=== PATIENT | male | born 1955 | race Caucasian/White ===

== ENCOUNTER 2024-11-27 08:04 | Outpatient (CLI) | payer MEDICARE, SELFPAY ==
--- NOTE | ~2024-11-27 | PE_ITS ---
EXAMINATION: PET_PETPSMAST_PT DATE: 11/27/2024 11:58 INDICATION: Prostate cancer TECHNIQUE: 5.126 mCi of Illucix Ga-[id number]) was administered i.v. Low dose computed cuco graphy (CT) images were acquired from the base of the brain to the base of the brain to the proximal thighs for attenuation correction and anatomic localization. Positron emission tomography (PET) image s were acquired in the same distribution beginning 90 minutes after injection. Images including fused PET/CT images were reconstructed in axial, coronal, and sagittal planes. Automated exposure control technique was employed. The dose-length product was 1210.15 mGy-cm. COMPARISON: None FINDINGS: Head/neck: Typical pattern of symmetric physiologic increased activity in the lacrimal, parotid and submandibula r glands as well as along the mucosa of the nasal and oral cavities, pharynx and hypopharynx. No path ologically enlarged cervical lymphadenopathy or suspicious foci of increased uptake in the visualized head or neck. Chest: A couple calcified left lower lobe nodules along with calcified left hilar and mediastinal lymph node s consistent with old granulomatous disease. No other suspicious noncalcified pulmonary nodules, pneu monia, pulmonary edema or pleural effusion. Heart size is normal. Atherosclerotic coronary artery boris cifications. Thoracic aorta is normal in caliber. No pathologically enlarged or PSMA avid thoracic ly mphadenopathy. Abdomen/pelvis/proximal thighs: Physiologic renal accumulation and excretion of activity in the kidneys, bladder and along portions o f ureters. There is a small region of increased PSA may uptake with maximal SUV of 4.7 at the left po sterior aspect of the prostate consistent with reported primary prostate cancer. Normal degree and sl ightly heterogenous pattern of increased uptake throughout the liver and spleen without radiologic co rrelate or dominant PSMA avid lesion. The gallbladder, pancreas and bilateral adrenal glands are norm al. Moderate uptake scattered throughout the bowels with typical duodenal and proximal jejunal predom inance and without radiologic correlate, also likely physiologic. Air-fluid level within a 5.0 x 2.5 cm duodenal diverticulum posterior to the head of the pancreas. There is moderate sigmoid diverticulo sis without adjacent inflammatory change to suggest diverticulitis. No other abnormal foci of increa sed uptake or pathologically enlarged lymphadenopathy in the abdomen, pelvis or proximal thighs. Musculoskeletal: Severe lumbosacral spondylosis. Otherwise mild scattered degenerative skeletal changes in the spine a nd at the hips and shoulders. Small focus of likely extravasated activity at the site of injection at the right forearm. No suspicious lytic, blastic or abnormally PSMA avid bone lesions. IMPRESSION: 1. Small region of mild increased uptake at the left posterior aspect of the prostate consistent with primary prostate cancer. No evident metastatic disease. Reviewed, dictated and finalized at location A. IMPRESSION: 1. Small region of mild increased uptake at the left posterior aspect of the pr ostate consistent with primary prostate cancer. No evident metastatic disease.
--- OUTSIDE RECORDS SUMMARY | 2024-11-27 08:10 | XMS_ITS | Encounter Summary ---
Author Organization [facility] Address [address] [place] [address] Care Team Providers Care Supervisor Continuous Weld Pipe Mill Name Role Phone Yoel Strauss MD Primary Care Provide r Encounter Details Date Type Department Care Team (Late st Contact Info) Description 07/04/2024 Prep for Procedure [facility] Pre-Admission Testing [place], [place] [id number] Jac Bailey MD [address] [facility]. [place], [place] [id number] Social History Tobacco Use Types Packs/Day Years Used Date Smoking Tobacco: Former Cigarettes Q uit: 06/23/2016 Passive Smoke Exposure: Never Smokeless Tobacco: Never Comments:smoked x50 years Alcohol Use Standard Drinks/Week Comments Yes 0 (1 standard drink = 0.6 oz pur e alcohol) occasionally AUDIT-C Answer Date Recorded Frequency of Alcohol Consumption Monthly or less 09/11/2018 Average Number of Drinks Not on file 019 Frequency of Binge Drinking Not on file 08/20 PHQ-2 Answer Date Recorded Patient Health Questionnaire-2 Score 0 04/24/2024 Sex and Gender Information Value Date Recorded Sex Assigned at Male 07/16/2021 8:47 AM APPEALS AND GENERALIST CLERK Legal Sex Male 7:36 PM CDT Gender Identity Male 07/16/2021 8:47 AM APPEALS AND GENERALIST CLERK Sexual Orientation Straight 07/16/2021 8: 47 AM APPEALS AND GENERALIST CLERK documented as of this encounter Plan of Treatment Not on file documented as of this encounter Visit Diagnoses Not on filedocumented in this encounter Additional Health Concerns Assessment Noted Time PHQ-9 Depression Total Score: 0 05/06/20 21 9:56 AM CDT documented as of this encounter Care Teams Supervisor Continuous Weld Pipe Mill Relationship Specialty Start Date End Date Yoel Strauss MD PCP - General INTERNAL MEDICINE 09/11/18 documented as of this encounter
--- OUTSIDE RECORDS SUMMARY | 2024-11-27 08:10 | XMS_ITS | Encounter Summary ---
Author Organization [facility] Address [address] [place] [address] Care Team Providers Care Videotape Editor Name Role Phone Yoel Strauss MD Primary Care Provide r Encounter Details Date Type Department Care Team (Late st Contact Info) Description 05/16/2012 Abstract [facility] Conversion Md, Generic Conversion, Social History Tobacco Use Types Packs/Day Years Used Date Smoking Tobacco: Never Assessed Sex and Gender Information Value Date Recorded Sex Assigned at Male 07/16/2021 8:47 AM AUTO PAINTER HELPER Legal Sex Male 7:36 PM CDT Gender Identity Male 07/16/2021 8:47 AM AUTO PAINTER HELPER Sexual Orientation Straight 07/16/2021 8: 47 AM AUTO PAINTER HELPER documented as of this encounter Plan of Treatment Not on file documented as of this encounter Visit Diagnoses Not on filedocumented in this encounter Care Teams Videotape Editor Relationship Specialty Start Date End Date Yoel Strauss MD PCP - General INTERNAL MEDICINE 09/11/18 documented as of this encounter
--- OUTSIDE RECORDS SUMMARY | 2024-11-27 08:10 | XMS_ITS | Clinical Summary ---
Author Organization [facility] Address [address] [place] [address] Care Team Providers Care Import Export Coordinator Name Role Phone Yoel Strauss MD Primary Care Provide r Allergies No known active allergies Medications escitalopram (LEXAPRO) 10 MG tabletIndications: MANA (generalized anxiety disorder) Take 1 tablet (10 mg total) by mouth daily. 90 tablet 3 04/24/20 24 Active lisinopril (PRINIVIL) 40 MG tabletIndications: Benign hypertension Take 1 tablet (40 mg total) by mouth daily. 90 tablet 3 04/24/20 24 Active metFORMIN (GLUCOPHAGE) 500 MG tabletIndications: Type 2 diabetes mellitus with hyperglycemia, with long-term current use of insulin ([facility] HHS/HCC) Take 2 tablets (1,000 mg total) by mouth 2 (two) times daily with meals. 360 tablet 3 04/24/20 24 Active Insulin Pen Needle (RELION PEN NEEDLE 31G/8MM) 31G X 8 MM MiscIndications:Ty pe 2 diabetes mellitus with hyperglycemia, with long-term current use of insulin ([facility]/HCC HHS/HCC) USE 1 SYRINGE SUBCUTANEOUSLY ONCE DAILY 50 each 3 05/29/20 24 Active insulin glargine (LANTUS SOLOSTAR) 100 UNIT/ML injection (PEN)Indications:T ype 2 diabetes mellitus with hyperglycemia, with long-term current use of insulin ([facility] HHS/HCC) INJECT 20 UNITS INTO THE SKIN IN THE MORNING AND 80 UNITS IN THE EVENING 80 mL 11 07/10/20 24 Active atorvastatin (LIPITOR) 80 MG tabletIndications: Mixed hyperlipidemia Take 1 tablet (80 mg total) by mouth daily. 100 tablet 1 08/28/19 25 Active Active Problems Problem Noted Date Diagnosed Date Hx of colonic polyps 05/23/2024 Chronic osteomyelitis of toe of left foot ([facility]/H CC [facility]) 08/17/2023 Elevated PSA 02/02/2023 Acute pain of right shoulder 04/30/2022 Adenomatous polyp of descending colon 07/07/2021 Diabetic polyneuropathy asso ciated with type 2 diabetes mellitus ([facility]) 05/15/2021 MANA (generalized anxiety disorder) 03/12/2020 Rupture of left biceps tendon, initial encounter 05/09/2019 Benign hypertension 04/05/2019 Type 2 diabetes mellitus wit h hyperglycemia, with long-term current use of insulin ([facility]) 07/19/2016 Overview (03/21/2019): type II diabetes mellitus [non-insulin dependent type] [NIDDM type] [adult-onset type] or unspecified type, not stated as uncontrolled, without mention of complication Mixed hyperlipidemia 05/16/2012 Overview (03/21/2019): Mixed hyperlipidemia Resolved Problems Problem Noted Date Diagnosed Date Resolved Date Encounter for screening for malignant neoplasm of colon 06/02/2021 06/09/2021 Encounters Date Type Department Care Team Description 11/10/[address] [address] [place] [address] Yoel Strauss MD Other 11/06/2024 Scan HEALTH INFO [facility]CS Scanned, [facility] 10/30/2024 Scan MG HEALTH INFO [facility] Scanned, [facility] 09/25/2024 9:22 AM CDT Anesthesia Event [facility] [address] [place] [address] Dharmesh Syed CRNA Ruocco, Eric, MD 09/25/2024 9:00 AM CDT - 09/25/2024 9:26 AM CDT Surgery [facility] [address] [place] [address] Erlinda Moore MD COLONOSCOPY WITH BIOPSIES 09/25/2024 7:35 AM CDT - 09/25/2024 11:00 AM CDT Hospital Encounter [facility] [address] [place] [address] Erlinda Moore MD Discharge Disposition: Home or Self Care (Routine Discharge) 09/25/2024 Travel 09/12/2024 Travel from Last 3 Months Immunizations Immunization Administration Dates Next Due Fluzone High Dose - >Age 65 (Prefilled Syringe) 04/28/2023 Influenza Adult (Generic) 06/05/2020 PFIZER COVID-19 (ORIGINAL FO RMULATION, PURPLE CAP) mRNA, LNP-S, PF, 30 MCG/0.3 ML DOSE 04/18/2021,10/14/2020,09/23/2020 PFIZER COVID-19 BIVALENT (12 +) mRNA, LNP-S, PF, 30 MCG/0.3 ML DOSE 04/22/2022 Pneumococcal (Prevnar 13) 05/06/2021 Pneumococcal (Prevnar 20) 09/15/2023 Shingrix 09/15/2023 Tdap (Generic) 03/31/2024 Family History Medical History Relation Comments Cancer Father lung Diabetes Mother Hypertension Mother Relation Status Comments Father Mother Social History Tobacco Use Types Packs/Day Years Used Date Smoking Tobacco: Former Cigarettes Q uit: 06/23/2016 Passive Smoke Exposure: Never Smokeless Tobacco: Never Tobacco Cessation:Counseling Given: No Comments:smoked x50 years Alcohol Use Standard Drinks/Week [...] Sex Assigned at Male 07/16/2021 8:47 AM OSTRICH FARM WORKER Legal Sex Male 7:36 PM CDT Gender Identity Male 07/16/2021 8:47 AM OSTRICH FARM WORKER Sexual Orientation Straight 07/16/2021 8: 47 AM OSTRICH FARM WORKER Last Filed Vital Signs Vital Sign Reading Time Taken Comments Blood Pressure 121/67 09/25/2024 10:25 AM CDT Pulse 72 09/25/2024 10:25 AM CDT Temperature 36.7 C (98 F) 09/25/2024 9:56 AM CDT Respiratory Rate 18 09/25/2024 10:25 AM CDT Oxygen Saturation 94% 09/25/2024 10:25 AM CDT Inhaled Oxygen Concentration - - Weight 102.1 kg (225 lb) 09/25/2024 7:59 AM CDT Height 188 cm (6' 2 ) 09/25/2024 7:59 AM CDT Body Mass Index 28.89 09/25/2024 7:59 AM CDT Plan of Treatment Health Maintenance Due Date Last Done Comments Kidney Health Evaluation 1955 Diabetes: Retinopathy Eye Exam 1974 Hepatitis C 1974 RSV Immunization or 60+ Years (1 - Risk 60-74 years 1-dose series) 2016 AAA SCREENING 2021 Annual Medicare Wellness Visit 2021 Zoster Vaccines (2 of 2) 11/10/2023 09/15/2023 PHQ-2 (Physician [place]) 07/19/2024 04/24/2024 Hemoglobin A1C 08/01/2024 05/01/2024, 07/0 09/2022, 05/01/2021, Additional history exists COVID-19 Vaccine ( season) 2024 03/31/2024, 04/22/2022, 04/18/2021, Additional history exists Lipid Panel 05/01/2025 05/01/2024, 07/0 09/2022, 05/01/2021, Additional history exists DTaP, Tdap and Td Vaccines (2 - Td or Tdap) 03/31/2034 03/31/2024 Colorectal Cancer Screening Colonoscopy (10 Years) 09/25/2034 09/25/2024, 09/25/2024, 06/30/2021, Additional history exists Pneumococcal Vaccine: 50+ Years Completed 09/15/2023, 05/06/2021 Meningococcal B Vaccine Aged Out No l onger eligible based on patient's age to complete this topic Meningococcal Vaccine Aged Out No andrew lillian eligible based on patient's age to complete this topic RSV Immunizations Under 20 Months Aged Out No longer eligible based on patient's age to complete this topic Medical Devices Implanted Type Area Stem Dryer Maintainer Device Identifier Shelf Expiration Date Model / Serial / Lot Joe Joe Right: Hand Procedures Procedure Name Priority Date/Time Associated Diagnosis Comments COLONOSCOPY WITH BIOPSY 09/25/2024 9:22 AM CDT Hx of colonic polyps Case Notes Insulin dependent diabeticPatient was moved due to having covid. POCT GLUCOSE - ORDOÑEZ DOCKED DEVICE Routine 09/25/2024 7:56 AM CDT COLONOSCOPY Routine 09/25/2024 7:42 AM CDT PATHOLOGY Routine 09/25/2024 12:00 AM CDT LIPID PANEL Routine 05/01/2024 8:32 AM CDT Type 2 diabetes mellitus with hyperglycemia, with long-term current use of insulin ([facility] HHS/HCC) HEMOGLOBIN, GLYCOSYLATED Routine 05/01/2024 8:32 AM CDT Type 2 diabetes mellitus with hyperglycemia, with long-term current use of insulin ([facility] HHS/HCC) from Last 3 Months or Most Recently Relevant to Health Maintenance Results * (ABNORMAL) POCT glucose (09/25/2024 7:56 AM CDT) GLUCOSE POC 115(H) 70 - 99 MG/DL 09/25/2024 7:58 AM CDT [facility] 09/25/2024 7:56 AM CDT Erlinda Moore MD POCT ORDERABLES - DEVICE Fin al Result [facility] [address] [place] [address], [place] [phone] * Pathology (09/25/2024 12:00 AM CDT) PATHOLOGY [facility] Department of Laboratory Medicine [address] [place] [address] , extension [phone] Pathology Report Surgical Pathology Report Name: ROLA ANTHONY Hari Specimen #: [id number] Age: 10 1955 (Age: 69) Location: [facility] Sex: M Procedure Date: 09/25/2024 Hospital #: [id number] Date Received: 09/26/2024 Date Reported: 09/27/2024 Provider: ERLINDA MOORE MD Source: A: Splenic flexure, biopsies B: Colon, proximal descending, biopsies C: Colon, right, biopsies Clinical History: Z86.010. FINAL DIAGNOSIS: A. Colon polyp, splenic flexure, polypectomy: -Fragments of tubular adenoma B. Colon polyp, proximal descending, polypectomy: -Fragments of tubular adenoma C. Colon polyp, right, polypectomy: -Fragments of tubular adenoma Gross Description: A. Received in formalin, labeled with a patient label and as biopsy polyp splenic flexure are multiple pieces of delicate white tissue 0.8 x 0.8 x 0.2 cm in aggregate. The specimen is entirely submitted in cassette A1. B. Received in formalin, labeled with a patient label and as biopsy polyp proximal descending colon are 2 pieces of armendariz tissue 0.1 and 0.2 cm. The specimen is entirely submitted in cassette B1. C. Received in formalin, labeled with a patient label and as biopsy polyp right colon are 2 pieces of armendariz tissue each 0.2 cm. The specimen is entirely submitted in cassette C1. Gross examination (when applicable) was performed at [facility], [address] [place] [address]. This case was interpreted and signed out at [facility], [address] [place] [address]. Electronically Signed Out GAETANO BROWNING MD [facility] TISSUE COLON STRUCTURE / Unknown 09/25/2024 9:44 AM CDT Tissue specimen (specimen) COLON STRUCTURE / Unknown 09/25/2024 9:36 AM CDT Tissue specimen (specimen) COLON STRUCTURE / Unknown 09/25/2024 9:35 AM CDT us Erlinda Moore MD PATHOLOGY/CYTOLOGY ORDERABLE S Final Result [facility] [address] [place] [address], [place] [phone] * (ABNORMAL) HEMOGLOBIN, GLYCOSYLATED (05/01/2024 8:32 AM CDT) HGB A1C 10.0(H) <5.7 % 05/01/2024 1:53 PM CDT [facility] Comment: ADA GUIDELINES 2010 5.7 TO 6.4% INCREASED RISK OF DIABETES > OR = 6.5% CONSISTENT WITH DIABETES TESTING PERFORMED AT [facility] [id number] [place] [address] ESTIMATED AVG GLUCOSE 240 mg/dL 05/01/2024 1:53 PM CDT [facility] 05/01/2024 8:32 AM CDT Yoel Strauss MD LABORATORY Final Result [facility] [address] [place] [address], [place] [phone] * (ABNORMAL) LIPID PANEL (05/01/2024 8:32 AM CDT) CHOLESTEROL 119 <200 MG/DL 05/01/2024 10:54 AM CDT [facility] TRIGLYCERIDES 74 <150 MG/DL 05/01/2024 10:54 AM CDT [facility] HDL 35(L) >40.0 MG/DL 05/01/2024 10:54 AM CDT [facility] LDL (CALCULATED) 69 <100 MG/DL 05/01/20 10:54 AM CDT [facility] NON HDL CHOLESTEROL 84 <130 MG/DL 05/01 10:54 AM CDT [facility] Comment: NOTE: WHEN THE TRIGLYCERIDES ARE >200 mg/dL, NON HDL C IS A SECONDARY TARGET OF THERAPY, WITH A GOAL 30 mg/dL HIGHER THAN THE IDENTIFIED LDL C GOAL. CHOL/HDL RATIO 3.4 0.0 - 4.5 05/01/2024 10:54 AM CDT [facility] VLDL CALCULATION 15 5 - 55 MG/DL 05/01/2024 10:54 AM CDT [facility] LIPID INTERPRETATION 05/01/2024 10:54 AM CDT [facility] Comment: NIH CONCENSUS REPORT RECOMMENDATIONS: ADULT CHILD LOW RISK: CHOLESTEROL <200 <170 TRIGLYCERIDE <150 --- HDL >=60 --- LDL <100 <110 BORDERLINE: CHOLESTEROL 200-239 170-199 TRIGLYCERIDE 150-199 --- HDL 40-59 --- LDL 100-159 110-129 HIGH RISK: CHOLESTEROL >=240 >=200 TRIGLYCERIDE >=200 --- HDL <40 --- LDL >=160 >=130 05/01/2024 8:32 AM CDT Yoel Strauss MD LABORATORY Final Result [facility] [address] [place] [address], from Last 3 Months or Most Recently Relevant to Health Maintenance Insurance Advance Directives * Full Code (Latest Code Status on File) Date Activated Date Inactivated Comments 08/19/2023 8:26 AM 08/19/2023 11:49 AM Care Teams Import Export Coordinator Relationship Specialty Start Date End Date Yoel Strauss MD PCP - General INTERNAL MEDICINE 09/11/18
--- OUTSIDE RECORDS SUMMARY | 2024-11-27 08:10 | XMS_ITS | Encounter Summary ---
Author Organization [facility] Address [address] [place] [address] Care Team Providers Care Upholstery Handler Name Role Phone Yoel Strauss MD Primary Care Provide r Encounter Details Date Type Department Care Team (Late st Contact Info) Description 06/13/2012 Abstract [facility] Conversion Md, Generic Conversion, Social History Tobacco Use Types Packs/Day Years Used Date Smoking Tobacco: Never Assessed Sex and Gender Information Value Date Recorded Sex Assigned at Male 07/16/2021 8:47 AM WOOD PRESERVING PLANT LABORER Legal Sex Male 7:36 PM CDT Gender Identity Male 07/16/2021 8:47 AM WOOD PRESERVING PLANT LABORER Sexual Orientation Straight 07/16/2021 8: 47 AM WOOD PRESERVING PLANT LABORER documented as of this encounter Plan of Treatment Not on file documented as of this encounter Visit Diagnoses Not on filedocumented in this encounter Care Teams Upholstery Handler Relationship Specialty Start Date End Date Yoel Strauss MD PCP - General INTERNAL MEDICINE 09/11/18 documented as of this encounter
== END 2024-11-27 08:05 | disposition home or self-care (01) ==
PROVIDERS: PCP Pediatrics; Visit Provider Radiology Radiation Oncology
DX: C61 Malignant neoplasm of prostate (principal)
CPT/HCPCS: 78815; A9596